=== PATIENT | male | born 1965 ===

== ENCOUNTER 2021-09-17 15:38 | Outpatient (CLI) | payer OTHER | END 2021-09-17 16:10 | disposition home or self-care (01) | LOC: RAD 15:38 | PROVIDERS: ATTEND Orthopaedic Surgery | DX: M19.171 Post-traumatic osteoarthritis, right ankle and foot (principal); M79.671 Pain in right foot; M21.41 Flat foot [pes planus] (acquired), right foot ==

== ENCOUNTER 2021-10-16 07:12 | Outpatient (CLI) | payer OTHER | END 2021-10-16 07:15 | disposition home or self-care (01) | LOC: NUCLEAR 07:12 | PROVIDERS: ATTEND Orthopaedic Surgery | DX: M19.171 Post-traumatic osteoarthritis, right ankle and foot (principal) | CPT/HCPCS: 78315; 78802; A9503; A9556 ==

== ENCOUNTER 2021-12-04 12:26 | Outpatient (CLI) | payer OTHER | END 2021-12-04 12:33 | disposition home or self-care (01) | LOC: RAD 12:26 | PROVIDERS: ATTEND Orthopaedic Surgery | DX: M25.551 Pain in right hip (principal); M54.50 Low back pain, unspecified ==

== ENCOUNTER 2021-12-06 11:09 | Outpatient (CLI) | payer OTHER | END 2021-12-06 11:18 | disposition home or self-care (01) | LOC: TOM 11:09 | PROVIDERS: ATTEND Orthopaedic Surgery | DX: M76.821 Posterior tibial tendinitis, right leg (principal); M19.071 Primary osteoarthritis, right ankle and foot ==